=== PATIENT | male | born 1985 | race Caucasian/White ===

== ENCOUNTER 2019-03-09 22:44 | Emergency (ER) | payer SELFPAY | END 2019-03-10 00:56 | disposition left against medical advice (07) | LOC: JER 22:44 ==

== ENCOUNTER 2019-03-17 19:50 | Emergency (ER) | payer SELFPAY ==
[2019-03-17 19:54] VITALS: BMI 23.7
--- NOTE | 2019-03-17 20:21 | PDOC ---
History of Present Illness - General Chief Complaint: Depression Stated Complaint: DEPRESSION Time Seen by Provider: 03/17/19 20:12 History Source: Patient Exam Limitations: No Limitations - History of Present Illness Initial Comments: 03/17/19 21:00 Source: Patient HPI: 33yo man with no PMH presenting with sadness for the past two weeks. Patient reports strong feelings of sadness permeating his mood throughout the past two weeks. He reports having suicidal thoughts over a year ago reportedly thinking "suicide wouldn't be so bad" then immediately rejected the idea because of his responsibility to his family. He explicitly denies suicidal ideation or homicidal ideation at the current time and reports that he is presenting specifically to connect with a psychiatrist and to fully document his symptoms. He denies ever having a plan or means of committing suicide. He is future oriented with a girlfriend at home (whom he plans to propose to) who encouraged him to come in to connect with psychiatric care, and two children. He recently moved from the [place] and reports a history of depression and therapy from 5th grade until high school graduation which he recalls was helpful for him. He quit therapy when "I kept busy with work" and did well for several years with difficulty around deaths of parents, other family members, and friends in the [place]. He recently relocated and finds it difficult to adjust to [place] where he feels he doesn't know where things are and doesn't have a local provider. He also recently lost a job after 16 years which resulted in several boughts of these feelings. He is also a daily marijuana smoker and reports that he uses this to self medicate when he is feeling sad. Approximately one week ago he reports drinking heavily and developing a panic attack (resulting in presentation to this ED) which was highly out of character for him as he normally "won't even drink while the ball drops." He denies any medical problems, reports he has not symptoms including: CP / SOB / F / C / N / V / H / Dizz. PMH: denies PSH: denies All: PCN, reported anaphylaxis in childhood Meds: denies SHx: lives with girlfriend, two children, works as an artist, nonsmoker / EOTH binges / daily marijuana use Past History - Past Medical History Allergies/Adverse Reactions: Allergies Penicillins Allergy (Verified 03/17/19 19:54) Home Medications: Ambulatory Orders NK [No Known Home Medication] 03/17/19 Psychosocial History: Yes: other (Patient reports depression, panic attacks, substance use disorder without formal diagnosis) Surgical History: Yes: No Surgical History - Family History Significant Family History: Yes: no pertinent family hx - Immunization History Immunization Up to Date: Yes Tetanus Status: Unknown - Social History Smoking History: Yes Smoking Status: Current every day smoker Number of Cigarettes Per Day: 1 Alcohol Use: recent binge, reports infrequent use Drug Use: marijuana (daily ) Patient Lives Alone: No (lives with girlfriend and his two children) Lives With: spouse/SO *Review of Systems - Review of Systems Able to Perform ROS?: Yes Constitutional: No: Symptoms Reported, Chills, Fever, Weakness HEENTM: No: Symptoms Reported Respiratory: No: Symptoms reported, Cough, Shortness of Breath Cardiac (ROS): No: Symptoms Reported, Chest Pain, Irregular Heart Rate, Palpitations, Chest Tightness ABD/GI: No: Symptoms Reported, Constipated, Diarrhea, Nausea, Vomiting : No: Symptoms Reported, Burning, Dysuria, Pain Psychiatric: Yes: Anxiety, Depression, Emotional Problems All Other Systems: Reviewed and Negative *Physical Exam - Vital Signs Last Vital Signs Temp Pulse Resp BP Pulse Ox 98.6 F 65 18 125/79 100 03/17/19 19:52 03/17/19 19:52 03/17/19 19:52 03/17/19 19:52 03/17/19 19:52 - Physical Exam Comments: 03/17/19 21:22 Vitals reviewed, afebrile, vital signs stable Gen: WDWN man, multiple arm tattoos, well dressed, intermittently texting his girlfriend HEENT: normocephalic, atraumatic, EOMI, normal morphologies, MMM CV: RRR, normal s1/s2, no murmurs appreciated Pulm: normal WOB, CTABL, no wheezes / rales / rhonchi Neuro: alert and oriented, MAEE, CN grossly intact Plan - Progress Note Progress Note: 03/17/19 21:46 -CBC, CMP, TSH ordered -Psychiatry referral -[facility] referral 03/17/19 22:24 -CBC, CMP, TSH all within normal limits -Patient provided with return precautions and referral information Dispo: home - Laboratory CBC & Chemistry Diagram: 03/17/19 21:42 03/17/19 21:42 - Consult/PCP Time Called: 20:15 (Left message with psychiatrist guest relations representative) *DC/Admit/Observation/Transfer Diagnosis at time of Disposition: Depression Qualifiers: Depression Type: unspecified Qualified Code(s): F32.9 - Major depressive disorder, single episode, unspecified - Discharge Dispostion Disposition: HOME Condition at time of disposition: Stable Decision to Admit order: No - Referrals Referrals: Vannesa Fritz MD [Staff Physician] - [facility] [Provider Group] - Patient Instructions Printed Discharge Instructions: DI for Depression -- Adult Additional Instructions: You were seen and evaluated in the [facility] emergency department. Thank you for coming in. We have included two referrals for you - one for [facility] (to establish a local primary care provider) and one for Dr. Fritz with psychiatry. Please call Dr. Fritz's office on Tuesday morning to arrange an appointment - please tell them that you were evaluated in the Emergency Department. Please call the [facility] to establish care next week. If before establishing care you have any new or worrisome symptoms such as but not limited to; abnormal or concerning thoughts, suicidality please do not hesitate to return to the Emergency Department. If you feel you want to hurt yourself or others please immediately call 911, come to the emergency department, or call the National Suicide Prevention Lifeline at at any time. We are all always here to help in whatever way we can. - Post Discharge Activity Forms/Work/School Notes: My Personal Safety Plan
[2019-03-17 21:49] LABS: BASO % 0.6 % (0-2.0); EOS % 0.3 % (0-4.5); HEMATOCRIT 42.9 % (35.4-49); HEMOGLOBIN 14.4 GM/dL (11.7-16.9); LYMPH % 16.1 % (8-40); MCH 29.2 pg (25.7-33.7); MCHC 33.6 g/dl (32.0-35.9); MEAN PLT VOLUME 7.6 fl (7.5-11.1); MONO % 5.5 % (3.8-10.2); NEUT % 77.5 % (42.8-82.8); PLATELET COUNT 218 K/MM3 (134-434); RBC 4.93 M/mm3 (4.00-5.60); RDW 13.4 % (11.9-15.9); WHITE BLOOD COUNT 9.2 K/mm3 (4.0-10.0)
[2019-03-17 22:08] LABS: ALBUMIN 4.7 g/dl (3.4-5.0); BILIRUBIN,TOTAL 0.5 mg/dL (0.2-1); CALCIUM 9.7 mg/dL (8.5-10.1); POTASSIUM 3.9 mmol/L (3.5-5.1); TOT PROT 8.4 g/dl (6.4-8.2)
--- NOTE | 2019-03-17 22:32 | PDOC ---
Documentation entered by Carrillo Magaña SCRIBE, acting as scribe for Saumya Landry MD. Saumya Landry MD: This documentation has been prepared by the G[facility] Daniel, SCRIBE, under my direction and personally reviewed by me in its entirety. I confirm that the documentation accurately reflects all work, treatment, procedures, and medical decision making performed by me. Attending Attestation - Resident Resident Name: Paul Enriquez - ED Attending Attestation I have performed the following: I have examined & evaluated the patient, The case was reviewed & discussed with the resident, I agree w/resident's findings & plan - HPI HPI: 03/17/19 21:03 The patient is a 33 year old male with no past medical history here today for evaluation of depression. The patient reports that he hasnt worked in the past 2 months and recently moved out of the [place] to live with his girlfriend and their 2 kids. He states that he had suicidal thoughts 2 years ago but did not act on them and hasnt had any since. He states that he came in today because he feels sad and would like to work out a plan of care with psychiatrists. Patient states that there have been multiple factors that have made him sad in the past including losing multiple jobs, the deaths of loved ones, and dropping out of high school. Allergies: penicillins - Physicial Exam PE: 03/17/19 21:03 GENERAL: Awake, alert, and fully oriented, in no acute distress HEAD: No signs of trauma EYES: PERRLA, EOMI, sclera anicteric, conjunctiva clear ENT: Auricles normal inspection, hearing grossly normal, nares patent, oropharynx clear without exudates. Moist mucosa NECK: Normal ROM, supple, no lymphadenopathy, JVD, or masses LUNGS: Breath sounds equal, clear to auscultation bilaterally. No wheezes, and no crackles HEART: Regular rate and rhythm, normal S1 and S2, no murmurs, rubs or gallops ABDOMEN: Soft, nontender, normoactive bowel sounds. No guarding, no rebound. No masses EXTREMITIES: Normal range of motion, no edema. No clubbing or cyanosis. No cords, erythema, or tenderness NEUROLOGICAL: Cranial nerves II through XII grossly intact. Normal speech, normal gait SKIN: Warm, Dry, normal turgor, no rashes or lesions noted. 03/18/19 03:53 Pt has no suicidal ideation - Medical Decision Making 03/18/19 03:53 All labs normal, including TSH. Pt is stable for d/c home
[2019-03-17 22:35] VITALS: BP 120/77; PULSE 61; TEMP 98.4
== END 2019-03-17 22:35 | disposition home or self-care (01) ==
LOC: JER 19:50
DX: F32.9 Major depressive disorder, single episode, unspecified (principal); F17.210 Nicotine dependence, cigarettes, uncomplicated
CPT/HCPCS: 36415; 80053; 84443; 85025; 99283-25